=== PATIENT | female | born 1965 | race Caucasian/White ===

== ENCOUNTER 2018-01-19 16:24 | Emergency (ER) | payer OTHER, MEDICAID, SELFPAY ==
[2018-01-19 16:25] VITALS: BP 135/98; PULSE 69; RESP 18; TEMP 36.9; O2SAT 100; BMI 35.1
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
[2018-01-19 19:14] VITALS: BP 130/60; PULSE 89; RESP 18; TEMP 37.1; O2SAT 95
== END 2018-01-19 19:16 | disposition home or self-care (01) ==
PROVIDERS: Emergency Provider Emergency Medicine; PCP Nurse Practitioner Family
DX: S39.012A Strain of muscle, fascia and tendon of lower back, initial encounter (principal); V43.62XA Car passenger injured in collision with other type car in traffic accident, initial encounter; Y92.414 Local residential or business street as the place of occurrence of the external cause; E11.9 Type 2 diabetes mellitus without complications; F17.210 Nicotine dependence, cigarettes, uncomplicated; Z88.6 Allergy status to analgesic agent
CPT/HCPCS: 71045; 72131; 72170; 96372; 99282; J2405

== ENCOUNTER → 2018-04-04 16:18 | Outpatient (CLI) | payer MEDICAID, SELFPAY ==
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
== END ==
PROVIDERS: Family Provider Internal Medicine Adolescent Medicine; PCP Nurse Practitioner Family; Visit Provider Nurse Practitioner Family
DX: M54.42 Lumbago with sciatica, left side (principal)
CPT/HCPCS: 72148; 76376

== ENCOUNTER → 2018-09-02 15:31 | Outpatient (CLI) | payer MEDICAID, SELFPAY ==
--- NOTE | 2018-09-02 15:36 | XR_ITS ---
XR chest 2V HISTORY: ITS.REASON: COUGH ORDERING PHYSICIAN: Kofi Ortega MD PATIENT AGE: 52 years COMPARISON: 01/19/2018 FINDINGS: The heart size is unremarkable. There is increased density in the right lung base medially have a fairly sharp margin. While this could be due to prominent pericardial fat pad, right lower lobe collapse could have a similar appearance. Consider chest CT in this patient which is a current smoker. There is a calcified granuloma in the left lower lobe. The remaining lungs are clear. Bone plate is present in the lower cervical spine. No acute bony anomalies. Calcified nodes are present in the right hilum. IMPRESSION: 1. Right lower lobe collapse versus prominent pericardial fat pad/pericardial mass. Suggest chest CT for further evaluation. 2. Old granulomatous disease
== END ==
PROVIDERS: PCP Internal Medicine Adolescent Medicine; Visit Provider Internal Medicine Adolescent Medicine
DX: J41.0 Simple chronic bronchitis (principal); Z20.1 Contact with and (suspected) exposure to tuberculosis
CPT/HCPCS: 71046

== ENCOUNTER → 2018-09-09 13:10 | Outpatient (CLI) | payer MEDICAID, SELFPAY | PROVIDERS: PCP Internal Medicine Adolescent Medicine; Visit Provider Nurse Practitioner Family | DX: R06.09 Other forms of dyspnea (principal) | CPT/HCPCS: 93005 ==

== ENCOUNTER → 2018-09-14 10:44 | Outpatient (CLI) | payer MEDICAID, SELFPAY ==
[2018-09-14 11:35] VITALS: PULSE 71; PULSE 78
== END ==
PROVIDERS: PCP Internal Medicine Adolescent Medicine; Visit Provider Internal Medicine Adolescent Medicine
DX: R91.8 Other nonspecific abnormal finding of lung field (principal); R06.09 Other forms of dyspnea
CPT/HCPCS: 94060; 94640; 94726; 94729

== ENCOUNTER → 2018-09-16 11:31 | Outpatient (CLI) | payer MEDICAID, SELFPAY ==
--- NOTE | 2018-09-16 11:51 | NM_ITS ---
History and Indications: Diabetes, hyperlipidemia, chronic tobacco use, family history and shortness of breath Procedure: Patient received a 0.4 mg of intravenous Lexiscan, resting heart rate was 66 beats per resting blood pressure 119/76, with scan maximum heart rate achieved was 93 bpm which is less than 85% of the maximum predicted heart rate and a blood pressure was 125/76. With Lexiscan no symptoms recorded Electrocardiogram: Resting echocardiogram showed sinus rhythm, with Lexiscan there is less than 1.[address] segment depression noted from the baseline EKG. The EKG portion of the Lexiscan Myoview is nondiagnostic. Cardiac stress and resting SPECT images: Cardiac stress and rest SPECT images were obtained using technetium 99 Myoview 31.5 mCi stress and 10.1 mCi rest, gated SPECT further analysis of segmental wall motion and calculation of the ejection fraction also done. Cardiac stress and rest show uniform myocardial activity, without segmental perfusion abnormality, computer derived ejection fraction is over 65% with no regional wall motion abnormality, right ventricle is normal size and contractility. Conclusion: 1. The EKG portion of the Lexiscan Myoview is nondiagnostic. 2. No scintigraphic evidence of reversible ischemia seen, computer derived ejection fraction is over 65% with no regional wall motion abnormality, right ventricle is normal size and contractility. 3. Normal Lexiscan Myoview study.
--- NOTE | 2018-09-16 14:15 | HMH.ITSHM ---
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 []loratadine vit b vit d gabapentin citolopram pravastatin tizanodine
== END ==
PROVIDERS: PCP Internal Medicine Adolescent Medicine; Visit Provider Internal Medicine Adolescent Medicine
DX: R06.09 Other forms of dyspnea (principal)
CPT/HCPCS: 78452; 93017; A9502; J2785

== ENCOUNTER → 2018-09-26 08:22 | Outpatient (CLI) | payer MEDICAID, SELFPAY ==
[2018-09-26 08:40] LABS: Blood Urea Nitrogen 11 mg/dL (7-18); Estimated Glomerular Filt Rate 65 ml/min (>60); GFR (African American) 79 ML/MIN (>60)
--- NOTE | 2018-09-26 08:47 | CT_ITS ---
CT chest w con HISTORY: ITS.REASON: PULMONARY MASS ORDERING PHYSICIAN: Kofi Ortega MD PATIENT AGE: 52 years COMPARISON: 09/02/2018, 05/31/2008 TECHNIQUE: Axial images obtained following the administration of 75 mL of Isovue 370 . Sagittal, and coronal reformatted images are also generated and reviewed. All CT scans at the facility use one or more dose reduction, viz: automated exposure control, ma/kV adjustment per patient size (including targeted exams where dose is matched to indication, i.e. head), or iterative reconstruction technique. FINDINGS: No mediastinal or hilar mass or adenopathy. There are a few small mediastinal lymph nodes not significant change. There are coronary artery calcifications. No evidence of aortic aneurysm or dissection. No central pulmonary embolus. No central obstructing lesions. The right hemidiaphragm is elevated and there is a prominent right pericardial fat pad. These findings likely correspond to the radiographic abnormality noted on 09-02-18 simulating right lower lobe collapse.. Dependent changes are present in the right lower lobe. No suspicious nodules are apparent. Mild paraseptal emphysematous changes are present. There are some atelectatic or fibrotic changes within the lingula anteriorly. Calcified granuloma is present in the lingula and in the right lower lobe. Upper abdominal images show a 10 mm isodense in the right hepatic lobe anteriorly nonspecific and may represent a hepatic cyst previously measuring 9 mm. IMPRESSION: 1. No acute cardiac or pulmonary findings. 2. Elevated right hemidiaphragm with prominent pericardial fat pad likely simulating right lower lobe collapse as seen on the recent radiograph. 3. Old granulomatous disease 4. Coronary artery calcification
== END ==
PROVIDERS: Visit Provider Internal Medicine Adolescent Medicine
DX: R91.8 Other nonspecific abnormal finding of lung field (principal)
CPT/HCPCS: 36415; 71260; 82565; 84520; Q9967

== ENCOUNTER → 2019-04-14 14:56 | Outpatient (CLI) | payer MEDICAID, SELFPAY ==
--- NOTE | 2019-04-14 15:15 | XR_ITS ---
XR shoulder RT min 2V HISTORY: ITS.REASON: RT SHOULDER PAIN ORDERING PHYSICIAN: Kofi Ortega MD PATIENT AGE: 53 years Comparison: None FINDINGS: No fracture or dislocation. No lytic or blastic change. There is normal mineralization. The joint spaces are well-preserved. No significant degenerative/arthritic changes. No erosive changes evident. IMPRESSION: Negative, no acute finding
--- NOTE | 2019-04-14 15:15 | XR_ITS ---
XR humerus RT CLINICAL INDICATION: ITS.REASON: RT SHOULDER PAIN ORDERING PHYSICIAN: Kofi Ortgea MD PATIENT AGE: 53 years Comparison: None FINDINGS: No bony or joint abnormality IMPRESSION: Negative right humerus
[2019-04-14 15:41] LABS: Basophils # 0.1 K/mm3 (0-0.2); Basophils % 0.6 % (0.1-2.0); Eosinophils # 0.2 K/mm3 (0.0-0.4); Eosinophils % 1.7 % (0.1-12.0); Hematocrit 43.6 % (37.0-47.0); Hemoglobin 13.5 g/dL (12.2-16.2); Lymphocytes # 3.9 K/mm3 (0.7-4.5); Mean Corpuscular Hemoglobin 28.3 pg (27.0-31.2); Mean Corpuscular Volume 91.1 fl (81-99); Mean Platelet Volume 7.6 fl (7.4-10.4); Monocytes # 0.7 K/mm3 (0.1-1.0); Monocytes % 5.3 % (1.7-9.3); Neutrophils # 7.4 K/mm3 (1.8-7.8); Neutrophils % 60.4 % (37.0-80.0); Platelet Count 322 K/mm3 (142-424); Red Blood Count 4.79 M/mm3 (4.20-5.40); Red Cell Distribution Width 13.4 % (11.5-17.5); White Blood Count 12.2 K/mm3 (4.8-10.8)
[2019-04-14 16:39] LABS: Hemoglobin A1C 5.4 % (0.0-7.0)
[2019-04-14 17:06] LABS: Alanine Aminotransferase 35 U/L (12-78); Albumin Level 3.6 gm/dL (3.4-5.0); Alkaline Phosphatase 97 U/L (46-116); Anion Gap 12.3 mEq/L (5-15); Aspartate Amino Transferase 27 U/L (15-37); Bilirubin,Total 0.2 mg/dL (0.2-1.0); Blood Urea Nitrogen 10 mg/dL (7-18); Calcium 8.8 mg/dL (8.5-10.1); Carbon Dioxide 29 mmol/L (21.0-32.0); Chloride 102 mmol/L (98-107); Chol/HDL Ratio 3.9 (1-3.5); Cholesterol 192 mg/dL (140-200); Creatinine,Serum 0.86 mg/dL (0.55-1.02); Estimated Glomerular Filt Rate 69 ml/min (>60); GFR (African American) 83 ML/MIN (>60); Globulin 3.6 gm/dl (1.3-3.2); Glucose 73 mg/dL (74-106); HDL Cholesterol 49 mg/dL (29-89); LDL Cholesterol 117 mg/dL (0-130); Potassium 4.3 mmoL/L (3.5-5.1); Sodium 139 mmol/L (136-145); Thyroid Stimulating Hormone 1.68 uIU/ml (0.358-3.740); Total Protein,Serum 7.2 gm/dL (6.4-8.2); Triglycerides 129 mg/dL (30-200); VLDL Cholesterol 26 mg/dL (0-40)
[2019-04-17 03:14] LABS: Vitamin B12 703 pg/mL (232-1245)
== END ==
PROVIDERS: Visit Provider Internal Medicine Adolescent Medicine
DX: E11.9 Type 2 diabetes mellitus without complications (principal); R27.0 Ataxia, unspecified; G89.11 Acute pain due to trauma; M25.511 Pain in right shoulder
CPT/HCPCS: 36415; 73030; 73060; 80053; 80061; 82607; 83036; 84443; 85025

== ENCOUNTER → 2019-05-18 08:25 | Outpatient (CLI) | payer MEDICAID, SELFPAY ==
--- NOTE | 2019-05-18 08:30 | CT_ITS ---
CT lung screening EXAM: CT LUNG LOW DOSE WO CONTRAST HISTORY: 43 pack-year smoking history, asymptomatic for lung cancer ITS.REASON: H/O NICOTINE DEPENDENCE ORDERING PHYSICIAN: Kofi Ortega MD PATIENT AGE: 53 years COMPARISON: 09/26/2018 TECHNIQUE: The exam was performed on a GE Light Speed [address] scanner using 2.90 mGy CTDI. A low dose helical CT CHEST was performed on a multi-detector scanner. All CT scans at the facility use one or more dose reduction, viz: automated exposure control, ma/kV adjustment per patient size (including targeted exams where dose is matched to indication, i.e. head), or iterative reconstruction technique. The LDCT was performed in a facility that meets the criteria for the screening program. Data regarding this exam was submitted to ACR which is an approved registry. The order for this exam indicates that it came as a result of a lung cancer screening counseling shard decision-making visit that included all the elements required of such a visit including smoking cessation. The radiologist interpreting this exam meets the CMS criteria for the LDCT lung cancer screening program. The exam is reported using the Lung-RADS classification scale and reported to the ACR registry. NOTE: This study was performed for the specific purposes of lung cancer screening and is not an alternative to diagnostic chest CT. RADIATION DOSE: CTDI vol(CT dose Index-volume) = 2.90mG DLP (Dose Length Product) = 102.38 mGcm FINDINGS: COPD with paraseptal emphysematous changes and scattered areas of scarring. Old granulomatous disease Coronary artery calcifications IMPRESSION: 1. Lung RADS Category: 2, benign 2. Other findings: COPD with paraseptal emphysema and coronary artery calcification RECOMMENDATIONS: 12 month LDCT follow-up
--- NOTE | 2019-05-18 08:30 | MM_ITS ---
MM Dig screening mamm BI w/CAD CAD Screening COMPARISON: Digital mammograms with CAD 01/06/2017 and analog mammograms 07/10/2013 INDICATION: There is a history of breast cancer in patient's paternal great aunt and paternal aunt both after menopause TECHNIQUE: Standard CC and MLO images were obtained. R2 CAD reviewed. FINDINGS: The rest are composed primarily of fat with minimal scattered fibroglandular densities throughout each breast. There are couple benign-appearing microcalcifications left breast. There are stable nodes in both axilla. There is no suspicious lesion and there are no suspicious microcalcifications. IMPRESSION: Fibrofatty parenchyma with no suspicious lesion seen BI-RADS Category: 2 Benign Finding(s) RECOMMENDED FOLLOW-UP: 1YR - 1 YEAR FOLLOW-UP (A letter has been sent to the patient regarding results of the study.)
== END ==
PROVIDERS: PCP Internal Medicine Adolescent Medicine; Visit Provider Internal Medicine Adolescent Medicine
DX: Z12.31 Encounter for screening mammogram for malignant neoplasm of breast (principal); Z78.0 Asymptomatic menopausal state; Z12.2 Encounter for screening for malignant neoplasm of respiratory organs; Z87.891 Personal history of nicotine dependence; Z13.820 Encounter for screening for osteoporosis
CPT/HCPCS: 77067

== ENCOUNTER → 2019-06-07 12:56 | Outpatient (CLI) | payer MEDICAID, SELFPAY ==
--- NOTE | 2019-06-07 12:58 | XR_ITS ---
XR DEXA axial skeleton HISTORY: ITS.REASON: POST MENOPAUSAL SCREENING ORDERING PHYSICIAN: Kofi Ortega MD PATIENT AGE: 53 years COMPARISON: None FINDINGS: The BMD measured at the Left femoral neck is 0.855 g/cm squared with a T score of -1.3. This is considered Osteopenic according to the World Health Organization criteria. Fracture risk is Moderate. Treatment is advised. IMPRESSION: Osteopenia. Moderate fracture risk. Suggest follow-up exam June 2021
== END ==
PROVIDERS: PCP Internal Medicine Adolescent Medicine; Visit Provider Internal Medicine Adolescent Medicine
DX: M85.89 Other specified disorders of bone density and structure, multiple sites (principal)
CPT/HCPCS: 77080

== ENCOUNTER 2019-06-07 14:00 | Outpatient (RCR) | payer MEDICAID, SELFPAY ==
--- NOTE | 2019-04-25 13:43 | HMH.OTOPEV ---
OT Inpatient Evaluation Rehab OT Outpatient Eval Start: 04/25/19 13:31 Freq: Status: Active Protocol: Document 04/25/19 13:31 RMARSHALL (Rec: 04/25/19 13:[id number] Electronically Signed By Abdoulaye Danielle OT 04/25/19 13:31 Outpatient Therapy Subjective History Subjective History Pt is a 53 year old female who reports to therapy for initial evaluation to right shoulder. Pt reports on she slipped and fell. Pt tried to catch herself with right arm and began having pain immediately. Pt does demonstrate with decreased AROM and strength at right shoulder. Pt also explains she has constant pain in the shoulder that refers down into her elbow. Pt will continue to be seen twice a week in order to address all deficits. Chief Complaint Pain,Stiff,Weakness Symptom Type Ache,Throb,Sharp Symptoms Relieved By Rest/Positioning Symptoms Aggravated By Physical Activity,Twisting, Lifting Prior Functional Limitations None Current Functional Limitations Reaching,Lifting,Housework, Dressing,Desk Work/Reading, Sleeping,Recreation Activity Symptom Description Constant but Variable Level of pain today (0-10) 3 Pain scale - at its best (0-10) 1 Pain scale - at its worst (0-10) 5 Shoulder/Elbow Eval Shoulder Objective Measurements Shoulder ROM Right Shoulder ROM Limitations Pain Shoulder Abduction Active Range of 90 degrees Motion (degrees) Shoulder Flexion Active Range of Motion 105 degrees (degrees) Query Text: Shoulder External Rotation Active Range 50 degrees of Motion (degrees) Shoulder Internal Rotation Active Range 70 degrees of Motion (degrees) pain with active ROM shoulder exam right standard pain with passive ROM shoulder exam right standard decreased ROM shoulder exam standard right full ROM shoulder exam standard left Shoulder MMT Shoulder Abduction Strength Grade 3 Fair Shoulder Extension Strength Grade 3+ Fair+ Shoulder Flexion Strength Grade 3+ Fair+ Shoulder External Rotation Strength 3+ Fair+ Grade Shoulder Internal Rotation Strength 4- Good- Grade
== END 2019-06-07 14:05 | disposition home or self-care (01) ==
LOC: OT 14:00
PROVIDERS: Visit Provider Internal Medicine Adolescent Medicine
DX: M25.511 Pain in right shoulder (principal); M79.601 Pain in right arm
CPT/HCPCS: 97014; 97110; 97164; 97166; G0283

== ENCOUNTER 2019-07-05 13:30 | Outpatient (RCR) | payer MEDICAID, SELFPAY ==
--- NOTE | 2019-06-20 15:03 | HMH.PTOPEV ---
PT Outpatient Evaluation Rehab PT Outpatient Evaluation Start: 06/20/19 13:02 Freq: Status: Active Protocol: Document 06/20/19 14:48 PHORNAYELY (Rec: 06/20/19 15:02 PHORNE [id number]) Electronically Signed By Rosas Nieto, PT 06/20/19 14:48 Outpatient Therapy Subjective History Subjective History Pt is 53 yowf who presents with c/o pain in the low back and right LE x ~ 20 yrs. 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 Pt reports she had NCV test which showed worse problems in the left LE. She also had MRI performed 1 yr ago which showed L5/S1 spondylolisthesis. She states , I fall around a lot, I've probably fallen 5 or 6 times in the last year. She reports PMH of COPD, emphysema, DM-II , DDD, OA, osteopenia, and cervical discectomy with possible fusion. Chief Complaint Pain,Stiff,Paresthesia, Weakness Symptom Type Ache,Throb,Sharp,Dull,Stabbing ,Numbness,Tingling Symptoms Relieved By Rest/Positioning Symptoms Aggravated By Bending/Stooping,Physical Activity,Walking,Lifting Prior Functional Limitations Lifting,Sleeping,Walking, Bending/Stooping Current Functional Limitations Lifting,Sleeping,Walking, Bending/Stooping Symptom Description Constant but Variable Level of pain today (0-10) 3 Pain scale - at its worst (0-10) 10 Lumbopelvic Eval Gait Observation General Gait Pattern Observation Antalgic Gait Palapation tenderness bilateral Lumbar/Sacral Palpation Findings Tenderness Lumbar/Sacral Palpation Overall Comment B SI jt Accessory Movement L-spine Vertebrae Accessory Movements Central P/A [place] that Elicit Symptoms L2 bilateral L3 bilateral L4 bilateral L5 bilateral S1 bilateral Range of Motion Lumbar Spine Active Flexion Range of 0-55 Motion (degrees) Lumbar Spine Active Extension Range of 0-20 Motion (degrees) Left Lumbar Spine Lateral Flexion Active 0-20 Range of Motion (degrees) Right Lumbar Spine Lateral
== END 2019-07-05 13:35 | disposition home or self-care (01) ==
LOC: PT 13:30
PROVIDERS: Visit Provider Internal Medicine Adolescent Medicine
DX: M54.42 Lumbago with sciatica, left side (principal); M54.41 Lumbago with sciatica, right side
CPT/HCPCS: 97010; 97012; 97014; 97035; 97110; 97140; 97163; G0283

== ENCOUNTER → 2020-01-12 10:06 | Outpatient (CLI) | payer OTHER, SELFPAY ==
--- NOTE | 2020-01-12 10:10 | XR_ITS ---
PROCEDURE: XR WRIST RT W SCAPHOID CLINICAL INDICATION: wrist pain COMPARISON: WRR3 WRIST-3 VIEWS-RT from 01/31/2013 FINDINGS: No fracture, dislocation, lytic change, or blastic change evident. No significant degenerative change IMPRESSION: Negative right wrist Dictated by: Remington Bethea MD 01/12/2020 12:44 Electronically signed by Remington Bethea MD in [place] 01/12/2020 12:44
== END ==
PROVIDERS: PCP Internal Medicine Adolescent Medicine; Visit Provider Orthopaedic Surgery
DX: M25.531 Pain in right wrist (principal)
CPT/HCPCS: 73110

== ENCOUNTER 2020-01-19 14:00 | Outpatient (RCR) | payer OTHER, SELFPAY ==
--- NOTE | 2019-12-13 11:58 | HMH.OTOPEV ---
OT Inpatient Evaluation Rehab OT Outpatient Eval Start: 12/13/19 11:47 Freq: Status: Active Protocol: Document 12/13/19 11:47 FREDDY (Rec: 12[facility]13/19 11[facility]57 [id number] Electronically Signed By Abdoulaye Danielle OT 12/13/19 11:47 Outpatient Therapy Subjective History Subjective History Pt is a 54 year old female with past medical history of arthritis, diabetes, fibro, and COPD. Pt reports her right elbow began hurting her ~3 months ago. Pt does not recall a specific injury causing the pain to begin. Pt demonstrates pain at the right lateral aspect of the elbow. Pt is right hand dominant. Pt does not demosntrate with decreased AROM at right elbow, but she does show decreased strength at right elbow. Pt will continue to be seen twice a week in order to address all deficits. Chief Complaint Pain,Weakness Symptom Type Ache,Throb,Sharp,Dull,Numbness ,Shooting Symptoms Relieved By Rest/Positioning Symptoms Aggravated By Physical Activity,Twisting, Lifting Prior Functional Limitations None Current Functional Limitations Reaching,Lifting,Housework, Dressing,Desk Work/Reading, Driving,Sleeping,Recreation Activity Symptom Description Intermittent,Activity Dependent Level of pain today (0-10) 3 Pain scale - at its best (0-10) 1 Pain scale - at its worst (0-10) 9 Shoulder/Elbow Eval Shoulder Objective Measurements Elbow Objective Measurements Elbow MMT Right Elbow Flexion Strength Grade 3 Fair Elbow Extension Strength Grade 3 Fair OT Outpatient Assessment Impairments Problems/Impairments Palpation Tenderness,Impaired Range of Motion,Impaired Strength,Impaired Endurance, Impaired Lifting,Impaired Dressing,Impaired Shower/ Bathing,Impaired Household Care,Impaired Recreational Activities,Impaired Work Activities,Subjective C/O Pain
== END 2020-01-19 14:05 | disposition home or self-care (01) ==
LOC: OT 14:00
PROVIDERS: Visit Provider Orthopaedic Surgery
DX: M77.11 Lateral epicondylitis, right elbow (principal)
CPT/HCPCS: 97014; 97035; 97110; 97140; 97165; G0283

== ENCOUNTER → 2020-01-29 08:13 | Outpatient (POV) | payer OTHER, SELFPAY | PROVIDERS: PCP Internal Medicine Adolescent Medicine; Visit Provider Specialist | DX: M79.602 Pain in left arm (principal); M79.601 Pain in right arm; R20.0 Anesthesia of skin; R20.2 Paresthesia of skin | CPT/HCPCS: 95886; 95910 ==

== ENCOUNTER → 2020-03-22 08:04 | Outpatient (CLI) | payer OTHER, SELFPAY ==
--- NOTE | 2020-03-22 08:08 | CT_ITS ---
PROCEDURE: CT LUNG SCREENING CLINICAL INDICATION: H/O NICOTINE DEPENDENCE Forty-three pack-year smoking history, asymptomatic for lung cancer, emphysema COMPARISON: LUNGSCREEN CT lung screening from 05/18/2019 TECHNIQUE: The exam was performed on a GE Light Speed [address] scanner using 2.90 mGy CTDI. A low dose helical CT CHEST was performed on a multi-detector scanner. All CT scans at the facility use one or more dose reduction, viz: automated exposure control, ma/kV adjustment per patient size (including targeted exams where dose is matched to indication, i.e. head), or iterative reconstruction technique. The LDCT was performed in a facility that meets the criteria for the screening program. Data regarding this exam was submitted to [employer] which is an approved registry. The order for this exam indicates that it came as a result of a lung cancer screening counseling shard decision-making visit that included all the elements required of such a visit including smoking cessation. The radiologist interpreting this exam meets the CMS criteria for the LDCT lung cancer screening program. The exam is reported using the Lung-RADS classification scale and reported to the ACR registry. NOTE: This study was performed for the specific purposes of lung cancer screening and is not an alternative to diagnostic chest CT. RADIATION DOSE: CTDI vol(CT dose Index-volume) = 2.90mG DLP (Dose Length Product) = 99.77 mGcm Lung Rads Category: FINDINGS: COPD with centrilobular and paraseptal emphysema. There is mild coarsening of the interstitial markings. Calcified granuloma is present in the lingula. No suspicious pulmonary nodules apparent. There are minimal atelectatic changes or scarring in the lingula and right lung base OTHER FINDINGS: Small nodes are present in the mediastinum. Coronary artery calcifications are noted. IMPRESSION: Lung rads category 1- Recommend annual LD CT Incidental note made of coronary artery calcifications, COPD, and centrilobular and paraseptal emphysema Dictated by: Remington Bethea MD 04/07/2020 07:17 Electronically signed by Remington Bethea MD in [place] 04/07/2020 07:17
== END ==
PROVIDERS: PCP Internal Medicine Adolescent Medicine; Visit Provider Internal Medicine Adolescent Medicine
DX: Z87.891 Personal history of nicotine dependence (principal); Z12.2 Encounter for screening for malignant neoplasm of respiratory organs

== ENCOUNTER → 2020-06-13 11:12 | Outpatient (CLI) | payer OTHER, SELFPAY ==
[2020-06-13 11:34] LABS: Basophils # 0.1 K/mm3 (0-0.2); Basophils % 0.5 % (0.1-2.0); Eosinophils # 0.2 K/mm3 (0.0-0.4); Eosinophils % 1.8 % (0.1-12.0); Hematocrit 40.2 % (37.0-47.0); Lymphocytes # 3.7 K/mm3 (0.7-4.5); Lymphocytes % 30.3 % (10-50); Mean Corpuscular HGB Conc 32.4 g/dL (31.8-35.4); Mean Corpuscular Hemoglobin 31.5 pg (27.0-31.2); Mean Corpuscular Volume 97.2 fl (81-99); Mean Platelet Volume 7.5 fl (7.4-10.4); Monocytes # 0.6 K/mm3 (0.1-1.0); Monocytes % 4.9 % (1.7-9.3); Neutrophils # 7.6 K/mm3 (1.8-7.8); Neutrophils % 62.5 % (37.0-80.0); Platelet Count 277 K/mm3 (142-424); Red Blood Count 4.14 M/mm3 (4.20-5.40); Red Cell Distribution Width 14.1 % (11.5-17.5); White Blood Count 12.1 K/mm3 (4.8-10.8)
[2020-06-13 12:03] LABS: Chloride 106 mmol/L (98-107); Potassium 4.5 mmoL/L (3.5-5.1); Sodium 140 mmol/L (136-145)
[2020-06-13 12:06] LABS: Alanine Aminotransferase 16 U/L (12-78); Albumin Level 3.9 g/dl (3.5-5.0); Albumin/Globulin Ratio 1.4 (1.1-1.8); Alkaline Phosphatase 71 U/L (38-126); Anion Gap 10.5 mEq/L (5-15); Aspartate Amino Transferase 20 U/L (14-36); Bilirubin,Total 0.3 mg/dl (0.2-1.3); Blood Urea Nitrogen 11 mg/dl (7-17); Carbon Dioxide 28 mmol/L (22.0-30.0); Cholesterol 179 mg/dl (140-200); Estimated Glomerular Filt Rate 87 ml/min (>60); GFR (African American) 105 ML/MIN (>60); Globulin 2.8 g/dL (1.3-3.2); Total Protein,Serum 6.7 g/dl (6.3-8.2); Triglycerides 85 mg/dl (30-150); VLDL Cholesterol 17 mg/dL (0-40)
[2020-06-13 12:07] LABS: Calcium 9.5 mg/dl (8.4-10.2); Chol/HDL Ratio 3.1 (1-3.5); Glucose 85 mg/dl (74-100); HDL Cholesterol 57 mg/dl (40-60)
[2020-06-13 12:17] LABS: Direct LDL Cholesterol 107.74 mg/dL (100-129)
== END ==
PROVIDERS: Visit Provider Internal Medicine Adolescent Medicine
DX: J44.9 Chronic obstructive pulmonary disease, unspecified (principal)
CPT/HCPCS: 36415; 80053; 80061; 85025

== ENCOUNTER → 2020-07-04 10:51 | Outpatient (CLI) | payer OTHER, SELFPAY | PROVIDERS: PCP Internal Medicine Adolescent Medicine; Visit Provider Internal Medicine Adolescent Medicine | DX: Z87.891 Personal history of nicotine dependence (principal) ==

== ENCOUNTER 2020-07-23 15:00 | Outpatient (RCR) | payer OTHER, SELFPAY ==
--- NOTE | 2020-06-24 15:40 | HMH.PTOPEV ---
PT Outpatient Evaluation Rehab PT Outpatient Evaluation Start: 06/24/20 15:29 Freq: Status: Active Protocol: Document 06/24/20 15:30 MARCIN (Rec: 06/24/20 15:39 [email or web address] [id number]) Electronically Signed By Heraclio Salas PT 06/24/20 15:30 Outpatient Therapy Subjective History Subjective History This is the initial Physical Therapy evaluation for Luh Workman. Pt is a 54 y/o femal referred to PT for c/o dizziness and falls. Pt reports she has had c/o BLE paresthesia and numbness since prior to cervical surgery in 2014. Pt reports some of her S&S improved after the surgery . Pt reports this lasted for a short time and now she hac c /o dizziness and paresthesia in BLE w/ L>R. Pt reports she has no feeling in either foot . Pt reports she gets dizzy w / cervical extension. Chief Complaint Paresthesia,Weakness,Other Symptom Type Other Symptoms Aggravated By Walking Current Functional Limitations Housework,Driving,Sitting, Recreation Activity,Walking, Balance Symptom Description Constant but Variable Balance Eval Hx of Falls Hx Falls Yes Number in last 6 months 5 Gait/Posture Asssessment General Gait Observation Wide Based Gait Assistive Devices Straight Cane Level of Transfer Assist Independent Body Alignment Posture Rigid Nystagmus Nystagmus Presence None Oculomotor Gaze Oculomotor Gaze Nml: Vergence Smooth Pursuit Saccades VOR Cancellation Cover/Uncover Cross Cover Rhomberg Feet Together/Eyes open/Stable Surface pass Feet Together/Eyes Closed/Stable Surface fail Feet Together/Eyes open/Unstable Surface pass Feet Together/Eyes Closed/Unstable fail Surface Outpatient Therapy Assessment Impairments Problems/Impairmments Impaired Walking,Impaired Incline Stepping,Impaired Stepping on Uneven Surface, Impaired Recreational Activities,Impaired Self Care/ Self M
== END 2020-07-23 15:49 | disposition home or self-care (01) ==
LOC: PT 15:00
PROVIDERS: PCP Internal Medicine Adolescent Medicine; Visit Provider Internal Medicine Adolescent Medicine
DX: H81.13 Benign paroxysmal vertigo, bilateral (principal)
CPT/HCPCS: 97163

== ENCOUNTER → 2020-08-12 14:09 | Outpatient (CLI) | payer OTHER, SELFPAY ==
--- NOTE | 2020-08-12 14:28 | MR_ITS ---
PROCEDURE: MR CERVICAL SPINE WO CON CLINICAL INDICATION: CERIVCAL AND THORACIC PAIN HX NECK SURGERY 2015. BILATERAL HAND AND ARM NUMBNESS XYRS. FALLING FREQUENTLY. NO PRIOR. COMPARISON: No exams were available for comparison TECHNIQUE: Standard multiplanar multiecho sequences are performed without contrast. 3-D MIP and myelographic images are also rendered and reviewed FINDINGS: The craniocervical junction has an unremarkable appearance. There is a partial empty sella turcica. C2-C3: Unremarkable. C3-C4: Left-sided facet and uncovertebral hypertrophy with left-sided foraminal narrowing. Mild bulging disc with minimal central disc protrusion versus prominent posterior longitudinal ligament C4-C5: Facet and uncovertebral hypertrophy with bilateral foraminal narrowing and canal stenosis at 10 mm. C5-C6: Prior anterior cervical disc fusion. Artifact obscures fine detail at that level. There does appear to be some posterior ridging of the interspace with canal stenosis with impingement upon the cord. With the canal measuring 6 mm. There is abnormal signal intensity of the cord at this level there is increased signal intensity involving the central aspect of the cord which measures cm in length at the C5-C6 area and may be due to underlying gliotic changes or small syrinx. C6-C7: Artifact present from the anterior bone plate. Bulging disc is noted with canal stenosis of 8 mm. C7-T1: Unremarkable. IMPRESSION: 1. C3-C4: Left-sided facet and uncovertebral hypertrophy with left-sided foraminal narrowing. Mild bulging disc with minimal central disc protrusion versus prominent posterior longitudinal ligament 2. C4-C5: Facet and uncovertebral hypertrophy with bilateral foraminal narrowing and canal stenosis at 10 mm. 3. C5-C6: Prior anterior cervical disc fusion. Artifact obscures fine detail at that level. There does appear to be some posterior ridging of the interspace with canal stenosis with impingement upon the cord. With the canal measuring 6 mm. There is abnormal signal intensity of the cord at this level there is increased signal intensity involving the central aspect of the cord which measures cm in length at the C5-C6 area and may be due to underlying gliotic changes or small syrinx. 4. C6-C7: Artifact present from the anterior bone plate. Bulging disc is noted with canal stenosis of 8 mm. Dictated by: Remington Bethea MD 08/13/2020 15:48 Remington Bethea MD in [place] 08/13/2020 15:48
--- NOTE | 2020-08-12 16:52 | MR_ITS ---
PROCEDURE: MR LUMBAR SPINE WO CON CLINICAL INDICATION: BACK PAIN BACK PAIN. BILATERAL LEG PAIN, NUMBNESS, AND TINGLING. UNABLE TO WALK OR STAND FOR LONG PERIODS. NO PRIOR. COMPARISON: MR MR CERVICAL SPINE WO CON from 08/12/2020 TECHNIQUE: Standard multiplanar multiecho sequences are performed without contrast. 3-D MIP and myelographic images are also rendered and reviewed FINDINGS: The spinal cord ends at the L1 level. T11-T12: Mild degenerative disc disease with type 2 endplate changes. Minimal bulging disc. T12-L1: Unremarkable. L2-L3: 2 mm retrolisthesis of L2 with mild bulging disc with mild facet and ligamentum hypertrophy. L3-L4: Minimal bulging disc with mild facet and ligamentum hypertrophy with moderate bilateral foraminal narrowing. L4-5: 2 mm anterolisthesis of L4 with bulging disc along with facet and ligamentum hypertrophy with moderate foraminal narrowing. L5-S1: 6 mm anterolisthesis of L5 with mild degenerative disc disease and bulging disc at that level along with facet and ligamentum hypertrophy with severe bilateral foraminal narrowing. There is incidental note made of a small T2 hyperintensity the base of the spinous process of L4 inferiorly measuring 3 mm. IMPRESSION: Multilevel lumbar spondylosis as described above with lateral recess and foraminal narrowing. Please see above for detailed description at each level Dictated by: Remington Bethea MD 08/13/2020 15:55 Remington Bethea MD in [place] 08/13/2020 15:55
== END ==
PROVIDERS: PCP Internal Medicine Adolescent Medicine; Visit Provider Orthopaedic Surgery
DX: M54.2 Cervicalgia (principal); M54.6 Pain in thoracic spine
CPT/HCPCS: 72141; 72148; 76376

== ENCOUNTER 2020-08-15 10:00 | Outpatient (RCR) | payer OTHER, SELFPAY ==
--- NOTE | 2020-07-30 11:15 | HMH.PTOPEV ---
PT Outpatient Evaluation Rehab PT Outpatient Evaluation Start: 07/30/20 10:00 Freq: Status: Active Protocol: Document 07/30/20 10:31 MARCIN (Rec: 07/30/20 11:14 MARCIN [id number]) Electronically Signed By Heraclio Salas, PT 07/30/20 10:31 Outpatient Therapy Subjective History Subjective History This is the initial PT evaluation for Luh Workman, a 54 y/o female reporting to physical therapy for balance and dizziness. Pt. reports that this has been going on for 25 years. Pt. reports loss of sensation in her feet. Pt. also reported that she had a spinal surgery in 2014 and that they took a disc out . Note done by SPT Bandar Grimes Chief Complaint Gives out/Unstable,Weakness Symptom Type Numbness,Tingling Symptoms Relieved By Nothing Symptoms Aggravated By Physical Activity,Walking Prior Functional Limitations Housework,Walking,Balance Current Functional Limitations Standing,Recreation Activity, Walking,Balance Symptom Description Activity Dependent Balance Eval Subjective Hx of Complaint Comment Pt. reported that she has had 2 falls in the last 2 weeks Chief Complaint Did you feel dizzy, unsteady or faint? Yes Current Functional Limitations Comment Pt. reports troubles with household activites, such as mopping, sweeping, Hx of Falls Hx Falls Yes: Pt. didn't give a number but reported 2 falls in the last 2 weeks Gait/Posture Asssessment General Gait Observation Wide Based Gait Assistive Devices Straight Cane Level of Transfer Assist Independent Ankle/Foot Observation in Gait Swing Decreased Foot Clearance Ankle/Foot Observation in Gait Stance Everted Body Alignment Posture Leaning Rhomberg Feet Together/Eyes open/Stable Surface pass Feet Together/Eyes Closed/Stable Surface fail Feet Together/Eyes open/Unstable Surface fail Feet Together/Eyes Closed/Unstable fail Surface Outpatient Therapy Assessment Impairments Problems/Impairmments Impaired Strength,Impaired Endurance,Impaired Gait Pattern,Impaired Household Care,Impaired Stepping on Uneven Surface,Impaired
== END 2020-08-15 10:05 | disposition home or self-care (01) ==
LOC: PT 10:00
PROVIDERS: PCP Internal Medicine Adolescent Medicine; Visit Provider Internal Medicine Adolescent Medicine
DX: H81.13 Benign paroxysmal vertigo, bilateral (principal)
CPT/HCPCS: 97110; 97112; 97163

== ENCOUNTER → 2021-03-28 12:07 | Outpatient (CLI) | payer OTHER, SELFPAY ==
[2021-03-28 13:03] LABS: Basophils # 0.1 K/mm3 (0-0.2); Basophils % 0.7 % (0.1-2.0); Eosinophils # 0.2 K/mm3 (0.0-0.4); Eosinophils % 1.2 % (0.1-12.0); Hematocrit 40.4 % (37.0-47.0); Hemoglobin 12.3 g/dL (12.2-16.2); Lymphocytes # 3.6 K/mm3 (0.7-4.5); Lymphocytes % 29.7 % (10-50); Mean Corpuscular HGB Conc 30.5 g/dL (31.8-35.4); Mean Platelet Volume 7.6 fl (7.4-10.4); Monocytes # 0.7 K/mm3 (0.1-1.0); Monocytes % 5.5 % (1.7-9.3); Neutrophils # 7.6 K/mm3 (1.8-7.8); Neutrophils % 62.9 % (37.0-80.0); Platelet Count 303 K/mm3 (142-424); Red Blood Count 4.25 M/mm3 (4.20-5.40); Red Cell Distribution Width 13.7 % (11.5-17.5); White Blood Count 12.1 K/mm3 (4.8-10.8)
[2021-03-28 14:11] LABS: Chloride 105 mmol/L (98-107); Potassium 4.5 mmoL/L (3.5-5.1); Sodium 139 mmol/L (136-145)
[2021-03-28 14:13] LABS: Alanine Aminotransferase 10 U/L (12-78); Aspartate Amino Transferase 18 U/L (14-36); Blood Urea Nitrogen 9 mg/dl (7-17); Estimated Glomerular Filt Rate 74 ml/min (>60); GFR (African American) 89 ML/MIN (>60)
[2021-03-28 14:14] LABS: Albumin Level 4.3 g/dl (3.5-5.0); Albumin/Globulin Ratio 1.6 (1.1-1.8); Alkaline Phosphatase 91 U/L (38-126); Anion Gap 9.5 mEq/L (5-15); Bilirubin,Total 0.3 mg/dl (0.2-1.3); Calcium 9.4 mg/dl (8.4-10.2); Carbon Dioxide 29 mmol/L (22.0-30.0); Cholesterol 186 mg/dl (140-200); Globulin 2.7 g/dL (1.3-3.2); Glucose 83 mg/dl (74-100); HDL Cholesterol 41 mg/dl (40-60); Triglycerides 187 mg/dl (30-150); VLDL Cholesterol 37 mg/dL (0-40)
[2021-03-28 14:27] LABS: Direct LDL Cholesterol 112.31 mg/dL (100-129)
[2021-03-28 15:45] LABS: Hemoglobin A1C 5.3 % (4.0-6.0)
[2021-03-28 17:43] LABS: Vitamin B12 867 pg/mL (239-931)
[2021-03-28 18:18] LABS: Chol/HDL Ratio 4.5 (1-3.5)
== END ==
PROVIDERS: Visit Provider Internal Medicine Adolescent Medicine
DX: E78.00 Pure hypercholesterolemia, unspecified (principal); G62.9 Polyneuropathy, unspecified
CPT/HCPCS: 36415; 80053; 80061; 82607; 83036; 85025

== ENCOUNTER 2021-06-27 19:19 | Emergency (ER) | payer OTHER, SELFPAY ==
[2021-06-27 19:32] VITALS: BP 151/77; PULSE 69; RESP 17; O2SAT 98; BMI 34.7
--- NOTE | 2021-06-27 19:33 | ECG_ITS ---
APPROVED REPORT Exam: Resting ECG HR:63 bpm ECG Measurements Heart Rate 63 AXES MN 122 P 44 QRSd 78 QRS 66 QT 416 T 72 QTc 425 Conclusion Normal sinus rhythm Normal ECG Electronically signed by : Kofi Ortega MD 06/28/2021 08:38:12
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
[2021-06-27 20:06] LABS: Basophils # 0.1 K/mm3 (0-0.2); Basophils % 0.9 % (0.1-2.0); Eosinophils # 0.2 K/mm3 (0.0-0.4); Eosinophils % 1.8 % (0.1-12.0); Hemoglobin 12.9 g/dL (12.2-16.2); Lymphocytes # 4.2 K/mm3 (0.7-4.5); Lymphocytes % 34.9 % (10-50); Mean Corpuscular HGB Conc 31.5 g/dL (31.8-35.4); Mean Corpuscular Volume 95.2 fl (81-99); Mean Platelet Volume 7.9 fl (7.4-10.4); Monocytes # 0.6 K/mm3 (0.1-1.0); Monocytes % 4.9 % (1.7-9.3); Neutrophils # 6.8 K/mm3 (1.8-7.8); Neutrophils % 57.4 % (37.0-80.0); Platelet Count 323 K/mm3 (142-424); Red Blood Count 4.31 M/mm3 (4.20-5.40); Red Cell Distribution Width 13.9 % (11.5-17.5); White Blood Count 11.9 K/mm3 (4.8-10.8)
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
[2021-06-27 20:42] LABS: Chloride 104 mmol/L (98-107)
[2021-06-27 20:43] LABS: Potassium 3.7 mmoL/L (3.5-5.1); Sodium 140 mmol/L (136-145)
[2021-06-27 20:45] LABS: Alanine Aminotransferase 13 U/L (12-78); Albumin Level 4.3 g/dl (3.5-5.0); Albumin/Globulin Ratio 1.4 (1.1-1.8); Alkaline Phosphatase 78 U/L (38-126); Anion Gap 12.7 mEq/L (5-15); Aspartate Amino Transferase 23 U/L (14-36); Bilirubin,Total 0.2 mg/dl (0.2-1.3); Blood Urea Nitrogen 9 mg/dl (7-17); Carbon Dioxide 27 mmol/L (22.0-30.0); Creatinine Clearance Estimated 106 mL/min (50-200); Estimated Glomerular Filt Rate 74 ml/min (>60); GFR (African American) 89 ML/MIN (>60); Globulin 3.1 g/dL (1.3-3.2); Total Protein,Serum 7.4 g/dl (6.3-8.2)
[2021-06-27 20:46] LABS: Calcium 9.2 mg/dl (8.4-10.2); Glucose 102 mg/dl (74-100)
[2021-06-27 21:01] VITALS: BP 172/80; PULSE 59; RESP 13; O2SAT 97
[2021-06-27 21:30] VITALS: BP 177/82; PULSE 62; RESP 14; O2SAT 98
[2021-06-27 22:04] VITALS: BP 147/80; PULSE 78; RESP 18; TEMP 36.8; O2SAT 99
== END 2021-06-27 22:07 | disposition home or self-care (01) ==
PROVIDERS: Emergency Provider Emergency Medicine; PCP Internal Medicine Adolescent Medicine
DX: S39.012A Strain of muscle, fascia and tendon of lower back, initial encounter (principal); S16.1XXA Strain of muscle, fascia and tendon at neck level, initial encounter; V43.62XA Car passenger injured in collision with other type car in traffic accident, initial encounter; Y92.414 Local residential or business street as the place of occurrence of the external cause
CPT/HCPCS: 70450; 71045; 72125; 72128; 72131; 72170; 80053; 85025; 93005; 99283

== ENCOUNTER 2021-08-13 14:00 | Outpatient (RCR) | payer OTHER, SELFPAY ==
--- NOTE | 2021-05-12 15:00 | HMH.PTOPEV ---
PT Outpatient Evaluation Rehab PT Outpatient Evaluation Start: 05/12/21 14:48 Freq: Status: Active Protocol: Document 05/12/21 14:49 MARCIN (Rec: 05/12/21 14:59 [email or web address] [id number]) Electronically Signed By Heraclio Salas, PT 05/12/21 14:49 Outpatient Therapy Subjective History Subjective History This is the initial Physical Therapy evaluation for Luh Workman. Pt is a 55 y/o female referred to PT for c/o BLE paresthesia, weakness and falls. Pt rpeorts she has had back trouble and tingling in her legs for years. Pt reports recent cervical spinal sx. but was unspecific as to what kind of surgery was had. Pt reports that surgery was in Sep. and reports she felt improved for a few months but in Nov/Dec she began having increased falls, weakness and paresthesia. Chief Complaint Gives out/Unstable,Paresthesia ,Weakness Symptom Type Numbness,Shooting Symptoms Relieved By Rest/Positioning Symptoms Aggravated By Standing,Bending/Stooping, Physical Activity,Walking Current Functional Limitations Housework,Standing,Recreation Activity,Walking,Stairs, Balance Symptom Description Constant but Variable Lumbopelvic Eval Posture Lumbar Spine Posture Standing Position Flattened Assistive device Assistive Devices None / NA Manual Muscle Test Bilateral Extensor Hallucis Longus Strength Grade 5 Normal Ankle Dorsiflexion Strength Grade 5 Normal Altered Sensation LE Dermatome Level L5,S1 Comment increased paresthesia in BLE L5/S1 dermatomes Special Tests Lumbar Spine Screen Positive Forward Bending Test- Standing Positive Left,Positive Right Forward Bending Test- Sitting Positive Left,Positive Right Unilateral Straight Leg Raise (Lasegue) Positive Right Test Outpatient Therapy Assessment Impairments Problems/Impairmments Impaired Endurance,Impaired Walking,Impaired Standing, Impaired Shower/Bathing, Impaired Household Care, Impaired Stair Climbing, Impaired S
== END 2021-08-13 14:05 | disposition home or self-care (01) ==
LOC: PT 14:00
PROVIDERS: PCP Internal Medicine Adolescent Medicine; Visit Provider Internal Medicine Adolescent Medicine
DX: R20.2 Paresthesia of skin (principal); M79.605 Pain in left leg; M79.604 Pain in right leg
CPT/HCPCS: 97010; 97110; 97163; 97164

== ENCOUNTER 2021-10-08 14:00 | Outpatient (RCR) | payer OTHER, SELFPAY | END 2021-10-08 14:05 | disposition home or self-care (01) | LOC: PT 14:00 | PROVIDERS: PCP Internal Medicine Adolescent Medicine; Visit Provider Orthopaedic Surgery | DX: M54.2 Cervicalgia (principal) | CPT/HCPCS: 97014; 97035; 97110; 97140; 97163; 97164; G0283 ==

== ENCOUNTER → 2022-01-23 13:47 | Outpatient (CLI) | payer OTHER, SELFPAY ==
--- NOTE | 2022-01-23 | CA_ITS ---
FINAL REPORT TECHNIQUE: Bilateral lower extremity venous duplex was performed with augmentation and compression. CLINICAL HISTORY: Patient states she has a spot on the posterior calf of right lower extremity that's been there for a while and it's getting worse with time. She states there is a sore spot on the top of the left foot. She denies trauma. Diabetes II, HLD. FINDINGS: Proper flow is seen throughout the deep venous systems bilaterally. There is no evidence of deep venous thrombosis. IMPRESSION: No evidence of deep venous thrombosis. Reviewed, Interpreted and Dictated by Arsenio Sharp MD Transcribed by My Mary Authenticated by Arsenio Sharp MD on 01/23/2022 03:45:08 PM [facility]
== END ==
PROVIDERS: PCP Internal Medicine Adolescent Medicine; Visit Provider Internal Medicine Adolescent Medicine
DX: M79.605 Pain in left leg (principal); M79.604 Pain in right leg; M79.89 Other specified soft tissue disorders
CPT/HCPCS: 93970

== ENCOUNTER 2022-06-30 11:27 | Emergency (ER) | payer OTHER, SELFPAY ==
[2022-06-30 11:38] VITALS: BP 131/59; PULSE 63; RESP 16; TEMP 36.9; O2SAT 96; BMI 35.6
--- NOTE | 2022-06-30 11:47 | XR_ITS ---
FINAL REPORT CLINICAL HISTORY: fall FINDINGS: Multiple views of the right femur were obtained. There is no acute fracture or dislocation. Visualized joint spaces are intact. There is no acute soft tissue abnormality. IMPRESSION: No acute process. Reviewed, Interpreted and Dictated by Guille Caba III, MD Transcribed by Fritz Barker Authenticated and [facility]
--- NOTE | 2022-06-30 11:47 | XR_ITS ---
FINAL REPORT CLINICAL HISTORY: fall FINDINGS: Two views of the right tibia-fibula demonstrate no acute fracture or dislocation. The joint spaces appear normal. The visualized bony structures are well aligned. No soft tissue abnormality is seen. IMPRESSION: No acute process. Reviewed, Interpreted and Dictated by Guille Caba III, MD Transcribed by Fritz Barker Authenticated and . [facility]
--- NOTE | 2022-06-30 11:47 | XR_ITS ---
FINAL REPORT CLINICAL HISTORY: fall FINDINGS: 2 views of the right hip and an AP pelvis were obtained. There is no acute fracture or dislocation. There are mild degenerative changes. There are no soft tissue abnormalities. IMPRESSION: No acute fracture. If symptoms are severe or worsen consider CT or MRI. Reviewed, Interpreted and Dictated by Guille Caba III, MD Transcribed by Fritz Barker Authenticated and [facility]
--- NOTE | 2022-06-30 11:47 | XR_ITS ---
FINAL REPORT CLINICAL HISTORY: fall FINDINGS: Three views of the right knee reveal no evidence of fracture or dislocation. The bony alignment is normal. There is mild medial compartment degenerative change. There is no evidence of joint effusion. No localized soft tissue abnormality is identified. IMPRESSION: No acute abnormality identified. Reviewed, Interpreted and Dictated by Guille Caba III, MD Transcribed by Fritz Barker Authenticated and . [facility]
--- NOTE | 2022-06-30 11:48 | PC.NURSE ---
Notified radiology of xray orders.
--- NOTE | 2022-06-30 11:51 | PC.NURSE ---
pt to radiology via stretcher with radial drill press operator for plastic
--- NOTE | 2022-06-30 11:51 | PC.NURSE ---
PT TO RADIOLOGY AT THIS TIME PER STRETCHER
[2022-06-30 12:30] VITALS: BP 114/70; PULSE 63; O2SAT 98
--- NOTE | 2022-06-30 12:35 | PC.NURSE ---
ED MD AT BEDSIDE FOR EVALUATION
--- NOTE | 2022-06-30 12:39 | HMH.EDGENADL ---
Discharge Plan Disposition Patient Disposition: Home, Self-Care Condition: Good Chief Complaint: Fall Prescriptions Prescriptions: No Action acetaminophen 500 mg capsule 500 mg capsule 500 mg PO Q6H PRN (Reason: pain) calcium carbonate-vitamin D3 600 mg(1,500mg) -200 unit tablet 1 tab PO DAILY Label Comments: TAKE 1 TABLET BY MOUTH TWICE DAILY citalopram 40 MG tablet 40 mg PO DAILY pravastatin 40 MG tablet 40 mg PO DAILY ergocalciferol (vitamin D2) 400 UNIT tablet 400 unit PO DAILY tizanidine 4 MG tablet 4 mg PO DAILY albuterol sulfate 5 MG/ML solution 5 mg IH DAILY PRN (Reason: COPD) loratadine 10 MG tablet 10 mg PO DAILY tiotropium-olodaterol 4 GM mist 4 gm IH DAILY Referrals Follow up/Referrals: Thom Crandall MD [Primary Care Provider] - See instructions Activity Restrictions/Add. Instructions Additional Instructions/Restrictions: Tylenol or ibuprofen for pain. Follow-up with primary care provider if not improved in 2 to 3 days. Clinical Impressions Clinical Impression: Fall, Lower extremity pain, right Discharge ED Provider: Martinez Valdez General Adult HPI General Chief complaint: Fall Stated complaint: AO [email or web address] 06/30/22 07:30 hip pain Time Seen by Provider: 06/30/22 12:30 Mode of Arrival: Ambulatory Limitations: No Limitations Description of Symptoms (Recalled from ER Triage Doc. by RN): Pt c/o rt hip pain that extends down to approx 3 inches below the knee. Advises that her dog had urinated on the floor this AM and she slipped in it. Denies hitting her head or any other body parts. History of Present Illness HPI narrative: Patient states that she fell this morning. She does not really know how she landed. Primarily complains of pain in her right lower extremity. Says that the worst pain is in her right calf. However, she hurts all the way up her right lower extremity to the buttock and sacroiliac area. She is able to walk, at baseline walks with a rolling walker. States that laying here she is started to get stiff all over. Related Data Home Medications Medication Instructions Recorded Confirmed citalopram 40 mg tablet 40 mg PO DAILY Depression 01/19/18 03/08/20 ergocalciferol (vitamin D2) 10 mcg 400 unit PO DAILY Supplement 01/19/18 03/08/20 (400 unit) tablet pravastatin 40 mg tablet 40 mg PO DAILY Cholesterol 01/19/18 03/08/20 albuterol sulfate 5 mg/mL(0.5 %) 5 mg IH DAILY PRN COPD 07/12/19 03/08/20 solution for nebulization loratadine 10 mg tablet 10 mg PO DAILY allergies 07/12/19 03/08/20 tiotropium 2.5 mcg-olodaterol 2.5 4 gm IH DAILY COPD 07/12/19 03/08/20 mcg/actuation mist for inhalation tizanidine 4 mg tablet 4 mg PO DAILY muscle relaxer 07/12/19 03/08/20 acetaminophen 500 mg capsule 500 mg PO Q6H PRN pain 01/12/20 03/08/20 calcium carbonate 600 mg-vitamin 1 tab PO DAILY Supplement 01/12/20 03/08/20 D3 5 mcg (200 unit) tablet Allergies Allergy/AdvReac Type Severity Reaction Status Date / Time hydrocodone [HYDROCODONE] Allergy Intermediate I-ITCHING Verified 03/08/20 09:31 codeine [CODEINE] Allergy Mild Verified 03/08/20 09:31 [facility] Social History Smoking Status: Current every day smoker tobacco type: cigarettes packs per day: 1 alcohol intake: never substance use type: denies use current occupational status: employed Travel in the last 8 weeks: None caffeine: Yes ROS Obtained: Yes Systems reviewed as appropriate & no additional complaints except as documented Constitutional Constitutional: Denies weakness Musculoskeletal Musculoskeletal: Reports as per HPI and Denies numbness Neurologic Neurologic: Denies numbness and Denies weakness Physical Exam General General appearance: alert and in no apparent distress Head Head exam: atraumatic and normocephalic Eye Eye exam: Present normal appearance and EOMI Neck Neck exam: Present normal inspection and trachea midli
--- NOTE | 2022-06-30 12:47 | PC.NURSE ---
CAROLE Juarez at BS to go over discharge instructions
[2022-06-30 12:49] VITALS: BP 114/70; PULSE 60; RESP 16; TEMP 36.8; O2SAT 95
== END 2022-06-30 12:51 | disposition home or self-care (01) ==
PROVIDERS: Emergency Provider Emergency Medicine; PCP Internal Medicine Adolescent Medicine
DX: M79.604 Pain in right leg (principal); W01.0XXA Fall on same level from slipping, tripping and stumbling without subsequent striking against object, initial encounter; Y92.009 Unspecified place in unspecified non-institutional (private) residence as the place of occurrence of the external cause; Z88.6 Allergy status to analgesic agent; Z72.0 Tobacco use
CPT/HCPCS: 73502; 73552; 73562; 73590; 99284

== ENCOUNTER → 2022-08-27 07:29 | Outpatient (CLI) | payer MEDICAID, SELFPAY ==
--- NOTE | 2022-08-27 07:32 | CT_ITS ---
FINAL REPORT CLINICAL HISTORY: H/O NICOTINE DEPENDENCE COMPARISON: 03/22/2020 FINDINGS: Low-Dose Chest CT Axial images were obtained from the lung apex to the mid abdomen by computed tomography. Low-dose protocol was utilized. CTDI vol (mGy): 2.90 DLP (mGy-cm): 99.51 There are postoperative changes in the lower cervical spine. There is no axillary adenopathy. There is no hilar or mediastinal adenopathy. The heart is proper size. There are moderate to severe left coronary artery calcifications which are visually worse. There is no pericardial or pleural effusion. Lung window images demonstrate no suspicious infiltrate or nodule. There are mild changes of emphysema with mild pulmonary scarring. There are bilateral calcified granulomas. No new mass or nodule is identified. Limited images of the upper abdomen demonstrate changes from cholecystectomy. IMPRESSION: No new mass or nodule is identified. S modifier: Moderate-severe left coronary artery calcification, worse. Lung RADS category 1S. Recommend 12 month follow-up low-dose chest CT. Reviewed, Interpreted and Dictated by Guille Caba III, MD Transcribed by My Mary Authenticated and . [facility]
--- NOTE | 2022-08-27 07:33 | XR_ITS ---
FINAL REPORT TECHNIQUE: Bone densitometry calculations of the lumbar spine and hip were obtained. CLINICAL HISTORY: post menopausal COMPARISON: 06/07/2019 FINDINGS: DEXA BONE DENSITY AXIAL SKELETON Using L1-4, the bone mineral density of the spine is 1.003 g/cm2, corresponding to T-score of -0.4. Note these values may be falsely elevated secondary to hypertrophic change. On today's exam L1 through L4 were measured and on the prior exam L1 through L3 were measured therefore a valid comparison cannot be made. Using the left hip, the bone mineral density of the femoral neck is 0.766 g/cm2, corresponding to a T-score of -1.4. Previously measured 0.855 g/cm2, corresponding to T-score of -1.3. NOTE: T-score: Standard deviation compared with peak bone mass of young adult mean. *Following the recommendations of the International Society of Bone densitometry, classification of hip BMD is based on the lower of two T-scores; total hip or femoral neck. IMPRESSION: Diminished bone mineral density of the lumbar spine and left hip consistent with osteopenia. FRAX 10 year fracture risk is 0.5 present for a hip fracture and 6.2% for a major osteoporotic fracture. Reviewed, Interpreted and Dictated by Guille Caba III, MD Transcribed by My Mary Authenticated and [facility]
--- NOTE | 2022-08-27 07:33 | MM_ITS ---
PROCEDURE INFORMATION: Exam: MG Bilateral Screening 3D Mammography Exam date and time: 08/27/2022 8:18 AM Age: 56 years old Clinical indication: Screening examination. A paternal aunt had breast cancer. TECHNIQUE: Imaging protocol: Bilateral Screening tomosynthesis and 2D mammography including computer-aided detection (CAD) when performed. COMPARISON: 1. MG DIG MAMM-SCREEN ELY 05/18/2019 8:40 AM 2. MG DMSB DIG MAMM-SCREEN ELY W/CAD 01/06/2017 4:09 PM 3. MG DIGMAMMDX MAMMOGRAM DX-AUTOMOTIVE SALESPERSON N/C 07/10/2013 8:25 AM 4. MG DMSB DIGITAL MAMM-SCREEN BILATERAL 07/08/2010 8:41 AM FINDINGS: MAMMOGRAPHY: Breast composition: There are scattered areas of fibroglandular density. Mass: None. Architectural distortion: None. Calcifications: No suspicious calcifications. Asymmetric density: None. Skin thickening: None. Axillary adenopathy: None. IMPRESSION: No mammographic evidence of malignancy. Annual screening is recommended unless otherwise clinically indicated. ASSESSMENT: BI-RADS Category 1: Negative
== END ==
PROVIDERS: PCP Nurse Practitioner Family; Visit Provider Nurse Practitioner Family
DX: Z12.31 Encounter for screening mammogram for malignant neoplasm of breast (principal); Z78.0 Asymptomatic menopausal state; Z87.891 Personal history of nicotine dependence; Z12.2 Encounter for screening for malignant neoplasm of respiratory organs
CPT/HCPCS: 71271; 77063; 77067; 77080

== ENCOUNTER → 2023-02-05 09:09 | Outpatient (CLI) | payer MEDICAID, SELFPAY ==
[2023-02-05 09:43] LABS: Basophils # 0.1 K/mm3 (0-0.2); Eosinophils # 0.3 K/mm3 (0.0-0.4); Eosinophils % 3.4 % (0.1-12.0); Hematocrit 43.1 % (37.0-47.0); Hemoglobin 13.3 g/dL (12.2-16.2); Lymphocytes # 2.8 K/mm3 (0.7-4.5); Lymphocytes % 30.1 % (10-50); Mean Corpuscular Volume 96.6 fl (81-99); Mean Platelet Volume 8.2 fl (7.4-10.4); Monocytes # 0.5 K/mm3 (0.1-1.0); Monocytes % 5.5 % (1.7-9.3); Neutrophils # 5.6 K/mm3 (1.8-7.8); Platelet Count 297 K/mm3 (142-424); Red Blood Count 4.46 M/mm3 (4.20-5.40); Red Cell Distribution Width 13.6 % (11.5-17.5); White Blood Count 9.4 K/mm3 (4.8-10.8)
[2023-02-05 10:08] LABS: Chloride 105 mmol/L (98-107); Sodium 140 mmol/L (136-145)
[2023-02-05 10:09] LABS: Potassium 4.4 mmoL/L (3.5-5.1)
[2023-02-05 10:11] LABS: Alanine Aminotransferase 15 U/L (12-78); Albumin Level 4.1 g/dl (3.5-5.0); Albumin/Globulin Ratio 1.5 (1.1-1.8); Alkaline Phosphatase 84 U/L (38-126); Anion Gap 11.4 mEq/L (5-15); Aspartate Amino Transferase 21 U/L (14-36); Bilirubin,Total 0.3 mg/dl (0.2-1.3); Blood Urea Nitrogen 13 mg/dl (7-17); Calcium 9.1 mg/dl (8.4-10.2); Carbon Dioxide 28 mmol/L (22.0-30.0); Cholesterol 149 mg/dl (140-200); Estimated Glomerular Filt Rate 86 ml/min (>60); GFR (African American) 104 ML/MIN (>60); Globulin 2.8 g/dL (1.3-3.2); Glucose 85 mg/dl (74-100); Total Protein,Serum 6.9 g/dl (6.3-8.2); Triglycerides 156 mg/dl (30-150); VLDL Cholesterol 31 mg/dL (0-40)
[2023-02-05 10:30] LABS: Direct LDL Cholesterol 99.43 mg/dL (100-129)
[2023-02-05 13:32] LABS: Chol/HDL Ratio 3.2 (1-3.5); HDL Cholesterol 46 mg/dl (40-60)
== END ==
PROVIDERS: PCP Nurse Practitioner Family; Visit Provider Nurse Practitioner Family
DX: I10 Essential (primary) hypertension (principal); E78.00 Pure hypercholesterolemia, unspecified; J44.9 Chronic obstructive pulmonary disease, unspecified
CPT/HCPCS: 36415; 80053; 80061; 85025

== ENCOUNTER → 2023-02-08 12:58 | Outpatient (CLI) | payer MEDICAID, SELFPAY ==
--- NOTE | 2023-02-08 13:03 | XR_ITS ---
FINAL REPORT CLINICAL HISTORY: POSTERIOR RT KNEE PAIN COMPARISON: 06/30/2022 FINDINGS: Three views of the right knee reveal no evidence of fracture or dislocation. The bony alignment is normal. The joint spaces are preserved. There is no evidence of joint effusion. No localized soft tissue abnormality is identified. IMPRESSION: No acute abnormality identified. Reviewed, Interpreted and Dictated by Guille Caba III, MD Transcribed by My Mary Authenticated and [facility]
== END ==
PROVIDERS: PCP Nurse Practitioner Family; Visit Provider Nurse Practitioner Family
DX: M25.561 Pain in right knee (principal)
CPT/HCPCS: 73562

== ENCOUNTER 2023-05-07 16:00 | Outpatient (RCR) | payer MEDICAID, SELFPAY ==
--- NOTE | 2023-02-25 09:49 | HMH.PTOPEV ---
PT Outpatient Evaluation Rehab PT Outpatient Evaluation Start: 02/25/23 08:27 Freq: Status: Active Protocol: Document 02/25/23 08:27 TASHA (Rec: 02/25/23 09:48 TASHA [id number]) E-signed By John Morales, PT Outpatient Therapy Subjective History Subjective History Pt reports fall in parking lot ~45 days ago, injury/ irritation to right knee. Pt reports medial aspect right knee/lower leg area since fall , h/o lumbar region issues w/ b/l LE neuropathy, 'but this feels more like a knee issue.' Pt reports standing and pivoting on RLE is the most provocative for that area. Chief Complaint Pain,Stiff,Swelling,Weakness Symptom Type Ache,Sharp,Dull Symptoms Relieved By Rest/Positioning Symptoms Aggravated By Standing,Physical Activity, Walking Prior Functional Limitations Housework,Standing,Walking Current Functional Limitations Housework,Standing,Walking Symptom Description Constant but Variable Level of pain today (0-10) 3 Pain scale - at its best (0-10) 2 Pain scale - at its worst (0-10) 8 Hip/Knee Eval Gait Observation General Gait Pattern Observation Antalgic Gait Assistive Device Assistive Devices Rolling / Wheeled Walker Palpation Tenderness right Knee Palpation Overall Comment 3/4 pes anserine insertion MMT Hip Flexion Strength Grade 4 Good Hip Abduction Strength Grade 4- Good- Hip Adduction Strength Grade 4- Good- Hip Extension Strength Grade 3+ Fair+ Knee Extension Strength Grade 5 Normal Knee Flexion Strength Grade 4 Good ROM Knee Flexion Active Range of Motion ( 0-131 degrees) Outpatient Therapy Assessment Impairments Problems/Impairmments Palpation Tenderness,Impaired Range of Motion,Impaired Strength,Impaired Gait Pattern ,Impaired Walking,Impaired Standing,Impaired Household Care,Subjective C/O Pain, Impaired Self Care/Self Management Prognosis Rehab Potential Good Clinical Impression Consistent with Diagnosis Yes Short Term Goals Number of Weeks 4 Decreased Palpation Tenderness Yes: 1-2/4 right knee/LE Increase Range of Motion Yes: R KNEE AROM WFL W/O PAIN Increase Strength Yes: 4/5 RLE Increase Ability to Walk
--- NOTE | 2023-04-07 16:54 | HMH.RHREAS ---
Rehab Reassessment Rehab OP Re-assessment Start: 04/07/23 16:31 Freq: Status: Active Protocol: Document 04/07/23 16:31 TASHA (Rec: 04/07/23 16:54 TASHA [id number]) E-signed By John Morales, PT Rehab Re-assessment Subjective Subjective Pt reports 0/10 right knee pain on VAs this pm, and feels much better related to localized right knee and strength since I eval Objective Objective Notes MMT: RIGHT LE KNEE EXT 4+/5 KNEE FLX 4-4+/5, HIP FLX 4-4+/ 5, HIP ADD 4+-5/5, HIP ABD 4/5 , HIP EXT 4/5 TTP: RIGHT KNEE MEDIAL JT LINE 11/04, RIGHT PES ANSERINE INSERTION 1-12/05 AROM: R KNEE FLX 0-130 GAIT: MILDLY ANTLAGIC RLE W/RW Assessment Progress Assessment Progressing as Expected Assessment Notes SIGNIFICANT IMPROVEMENTS IN RIGHT KNEE/LE STRENGTH AND TTP Patient goals met STG'S 06/08 LTG'S 01/06 Goals Not Met LTG'S 03/08 Plan Plan Pt to continue w/skilled P.T. to make further improvements in right LE strength, ROM, TTP , and gait to allow for optimal function Frequency of Therapy 1-2x/wk Duration of therapy 3-5wks Time and Billing Re-Eval Time 12 Re-Eval Billing Units 1 PHYSICIAN CERTIFICATION: I certify the specified therapy services for Luh Workman are required, authorized, and reviewed every 30 days.
== END 2023-05-07 16:05 | disposition home or self-care (01) ==
LOC: PT 16:00
PROVIDERS: PCP Nurse Practitioner Family; Visit Provider Nurse Practitioner Family
DX: M79.604 Pain in right leg (principal)
CPT/HCPCS: 97010; 97014; 97035; 97110; 97163; 97164; 97530; G0283

== ENCOUNTER → 2023-10-08 09:31 | Outpatient (CLI) | payer MEDICAID, SELFPAY ==
--- NOTE | 2023-10-08 09:36 | XR_ITS ---
FINAL REPORT CLINICAL HISTORY: Postmenopausal osteoporosis screening COMPARISON: 08/27/2022 FINDINGS: Using L1-4, the bone mineral density of the spine is 1.036 g/cm2, corresponding to T-score of -0.1, within normal limits. Previously 1.003 g/cm? with T-score of -0.4. Using the left hip, the bone mineral density of the femoral neck is 0.829 g/cm2, corresponding to a T-score of -0.9, within normal limits. Previously 0.766 g/cm? with T-score of -1.4. Using the right hip, the bone mineral density of the femoral neck is 0.869 g/cm2, corresponding to a T-score of -0.6, within normal limits. Previously 0.774 g/cm? with T-score of -1.4. FRAX not reported because all T-scores at or above -1.0. NOTE: T-score: Standard deviation compared with peak bone mass of young adult mean. *Following the recommendations of the International Society of Bone densitometry, classification of hip BMD is based on the lower of two T-scores; total hip or femoral neck. IMPRESSION: Normal bone mineral density of the lumbar spine and hips. Reviewed, Interpreted and Dictated by Guille Caba III, MD Transcribed by Pia Abreu Authenticated and [facility]
== END ==
PROVIDERS: PCP Nurse Practitioner Family; Visit Provider Nurse Practitioner Family
DX: Z78.0 Asymptomatic menopausal state (principal)
CPT/HCPCS: 77080

== ENCOUNTER 2024-01-07 09:02 | Outpatient (CLI) | payer MEDICAID, SELFPAY ==
[2024-01-07 10:02] LABS: Basophils # 0.1 K/mm3 (0-0.2); Basophils % 1.1 % (0.1-2.0); Eosinophils # 0.3 K/mm3 (0.0-0.4); Eosinophils % 3.4 % (0.1-12.0); Hemoglobin 12.9 g/dL (12.2-16.2); Lymphocytes # 2.6 K/mm3 (0.7-4.5); Lymphocytes % 33.6 % (10-50); Mean Corpuscular HGB Conc 31.6 g/dL (31.8-35.4); Mean Corpuscular Hemoglobin 31.9 pg (27.0-31.2); Mean Corpuscular Volume 101.3 fl (81-99); Mean Platelet Volume 8.2 fl (7.4-10.4); Monocytes # 0.4 K/mm3 (0.1-1.0); Monocytes % 5.1 % (1.7-9.3); Neutrophils # 4.5 K/mm3 (1.8-7.8); Neutrophils % 56.9 % (37.0-80.0); Platelet Count 253 K/mm3 (142-424); Red Blood Count 4.05 M/mm3 (4.20-5.40); Red Cell Distribution Width 13.1 % (11.5-17.5); White Blood Count 7.8 K/mm3 (4.8-10.8)
[2024-01-07 10:25] LABS: Alanine Aminotransferase 20 U/L (12-78); Albumin Level 4.2 g/dl (3.5-5.0); Albumin/Globulin Ratio 1.7 (1.1-1.8); Alkaline Phosphatase 71 U/L (38-126); Anion Gap 8.6 mEq/L (5-15); Aspartate Amino Transferase 26 U/L (14-36); Bilirubin,Total 0.3 mg/dl (0.2-1.3); Blood Urea Nitrogen 14 mg/dl (7-17); Calcium 9.3 mg/dl (8.4-10.2); Carbon Dioxide 28 mmol/L (22.0-30.0); Chloride 108 mmol/L (98-107); Chol/HDL Ratio 4.1 (1-3.5); Cholesterol 179 mg/dl (140-200); Estimated Glomerular Filt Rate 64 ml/min (>60); GFR (African American) 77 ML/MIN (>60); Globulin 2.5 g/dL (1.3-3.2); Glucose 88 mg/dl (74-100); HDL Cholesterol 44 mg/dl (40-60); Potassium 4.6 mmoL/L (3.5-5.1); Sodium 140 mmol/L (136-145); Total Protein,Serum 6.7 g/dl (6.3-8.2); Triglycerides 138 mg/dl (30-150); VLDL Cholesterol 28 mg/dL (0-40)
[2024-01-07 10:36] LABS: Direct LDL Cholesterol 94.44 mg/dL (100-129)
[2024-01-07 11:05] LABS: Hemoglobin A1C 5.5 % (4.0-6.0)
[2024-01-07 11:32] LABS: Folate > 20.00 ng/mL; Vitamin B12 > 1000 pg/mL (239-931)
== END 2024-01-07 23:59 ==
LOC: LAB 09:03
PROVIDERS: PCP Nurse Practitioner Family; Visit Provider Nurse Practitioner Family
DX: E78.2 Mixed hyperlipidemia (principal); R73.01 Impaired fasting glucose; E53.8 Deficiency of other specified B group vitamins
CPT/HCPCS: 36415; 80053; 80061; 82607; 82746; 83036; 85025

== ENCOUNTER 2024-05-03 12:31 | Outpatient (CLI) | payer MEDICAID, SELFPAY ==
--- NOTE | 2024-05-03 12:38 | XR_ITS ---
FINAL REPORT CLINICAL HISTORY: S/P FUSION COMPARISON: None FINDINGS: 3 views of the lumbar spine were obtained. Fusion L4-S1. There is no evidence of fracture. There is no malalignment. Leftward curvature is noted of the lumbosacral spine. The vertebrae are normal in height. Disc spaces are preserved. Vascular calcifications are noted. IMPRESSION: No acute bony abnormality. Reviewed, Interpreted and Dictated by Guille Caba III, MD Transcribed by Pia Abreu Authenticated and [facility]
== END 2024-05-03 23:59 | disposition home or self-care (01) ==
PROVIDERS: PCP Nurse Practitioner Family; Visit Provider Physician Assistant
DX: Z98.1 Arthrodesis status (principal)
CPT/HCPCS: 72100

== ENCOUNTER 2024-05-24 11:00 | Outpatient (RCR) | payer MEDICAID, SELFPAY | END 2024-05-24 11:05 | disposition home or self-care (01) | LOC: PT 11:00 | PROVIDERS: Visit Provider Physical Medicine & Rehabilitation | DX: M43.16 Spondylolisthesis, lumbar region (principal) | CPT/HCPCS: 97010; 97014; 97110; 97163; G0283 ==

== ENCOUNTER 2024-07-31 14:39 | Outpatient (CLI) | payer MEDICAID, SELFPAY ==
--- NOTE | 2024-07-31 14:44 | MM_ITS ---
PROCEDURE INFORMATION: Exam: MG Bilateral Screening 3D Mammography Exam date and time: 07/31/2024 2:49 PM Age: 58 years old Clinical indication: Screening examination TECHNIQUE: Imaging protocol: Bilateral Screening tomosynthesis and 2D mammography including computer-aided detection (CAD) when performed. COMPARISON: 1. MG MM DIG SCREENING MAMM BI W/CAD 08/27/2022 8:18 AM 2. MG DIG MAMM-SCREEN ELY 05/18/2019 8:40 AM FINDINGS: MAMMOGRAPHY: Breast composition: There are scattered areas of fibroglandular density. Mass: No suspicious masses. Architectural distortion: None. Calcifications: No suspicious calcifications. Asymmetric density: None. Skin thickening: None. Axillary adenopathy: None. IMPRESSION: No mammographic evidence of malignancy. Annual screening is recommended unless otherwise clinically indicated. ASSESSMENT: BI-RADS Category 1: Negative.
--- NOTE | 2024-07-31 14:45 | CT_ITS ---
FINAL REPORT TECHNIQUE: Axial CT images of the chest were obtained without contrast. Low-dose protocol was utilized. This study was performed with techniques to keep radiation doses as low as reasonably achievable (ALARA). Individualized dose reduction techniques using automated exposure control or adjustment of mA and/or kV according to the patient's size were employed. CLINICAL HISTORY: SCREENING, 1ppd for 47 years, current smoker COMPARISON: 08/27/2022 FINDINGS: CT CHEST WITHOUT, LOW DOSE SCREENING CT Di Vol: 2.90 mGy DLP: 95.60 mGy*cm Calcified bilateral hilar lymph nodes are present. The heart size is normal. There are moderate coronary artery calcifications. There is no pleural or pericardial effusion. The lung windows show no suspicious mass or nodule. Limited images of the upper abdomen demonstrate no acute findings. IMPRESSION: No suspicious mass or nodule. LR Category 1: 12 month follow-up low-dose chest CT is recommended per Fleischner criteria. Reviewed, Interpreted and Dictated by Arsenio Sharp MD Transcribed by Pia Abreu Authenticated and . [facility]
== END 2024-07-31 23:59 | disposition home or self-care (01) ==
LOC: RAD 14:40
PROVIDERS: PCP Internal Medicine Adolescent Medicine; Visit Provider Nurse Practitioner Family
DX: Z12.31 Encounter for screening mammogram for malignant neoplasm of breast (principal); Z87.891 Personal history of nicotine dependence
CPT/HCPCS: 71271; 77063; 77067

== ENCOUNTER 2024-12-22 11:30 | Outpatient (CLI) | payer MEDICAID, SELFPAY ==
--- NOTE | 2024-12-22 11:33 | XR_ITS ---
FINAL REPORT CLINICAL HISTORY: Left foot pain FINDINGS: AP, oblique and lateral views of the left foot were obtained. There is no acute fracture or dislocation. There is normal mineralization. The joint spaces are preserved. Soft tissues are unremarkable. IMPRESSION: No acute osseous abnormality of the left foot. Reviewed, Interpreted and Dictated by Serene Forte MD Transcribed by Ronel Rodriguez Authenticated and [facility]
--- NOTE | 2024-12-22 11:33 | XR_ITS ---
FINAL REPORT CLINICAL HISTORY: Right foot pain FINDINGS: AP, oblique and lateral views of the right foot were obtained. There is no acute fracture or dislocation. There is normal mineralization. There is mild degenerative disease at the first metatarsophalangeal joint. Remaining joint spaces are preserved. Soft tissues are unremarkable. IMPRESSION: No acute osseous abnormality of the right foot. Reviewed, Interpreted and Dictated by Serene Forte MD Transcribed by Ronel Rodriguez Authenticated and [facility]
--- NOTE | 2024-12-22 11:33 | XR_ITS ---
FINAL REPORT CLINICAL HISTORY: Right hip pain had back surgery in april 2024, persistent hip pain since. COMPARISON: 06/30/2022 FINDINGS: AP and frog leg views of the right hip were obtained. There is no acute fracture or dislocation. Joint space is preserved. Soft tissues are unremarkable. Postoperative changes are seen in the lower lumbar spine. IMPRESSION: No acute osseous abnormality of the right hip. No change from the prior exam. Reviewed, Interpreted and Dictated by Serene Forte MD Transcribed by Ronel Rodriguez Authenticated and [facility]
[2024-12-22 14:35] LABS: Triglycerides 101 mg/dl (30-150); VLDL Cholesterol 20 mg/dL (0-40)
[2024-12-22 14:36] LABS: Chol/HDL Ratio 2.8 (1-3.5); Cholesterol 168 mg/dl (140-200); HDL Cholesterol 61 mg/dl (40-60)
[2024-12-22 14:46] LABS: Direct LDL Cholesterol 85.79 mg/dL (100-129)
[2024-12-22 14:54] LABS: Hemoglobin A1C 5.3 % (4.0-6.0)
[2024-12-25 13:10] LABS: Anti-Centromere B Antibodies <0.2 AI (0.0-0.9); Anti-DNA (DS) Ab Qn <1 IU/mL (0-9); Anti-Jo-1 <0.2 AI (0.0-0.9); Anti-Smith Antibody <0.2 AI (0.0-0.9); Antichromatin Antibodies <0.2 AI (0.0-0.9); Antiscleroderma-70 Antibodies <0.2 AI (0.0-0.9); RNP Antibodies <0.2 AI (0.0-0.9); Sjogren's Anti-SS-A <0.2 AI (0.0-0.9); Sjogren's Anti-SS-B <0.2 AI (0.0-0.9)
== END 2024-12-22 23:59 | disposition home or self-care (01) ==
LOC: RAD 11:31
PROVIDERS: PCP Internal Medicine; Visit Provider Internal Medicine
DX: M25.551 Pain in right hip (principal); M79.671 Pain in right foot; M79.672 Pain in left foot; M25.50 Pain in unspecified joint; Z13.220 Encounter for screening for lipoid disorders; Z13.1 Encounter for screening for diabetes mellitus
CPT/HCPCS: 73502; 73630; 80061; 83036; 86225; 86235

== ENCOUNTER 2024-12-28 13:07 | Outpatient (CLI) | payer MEDICAID, SELFPAY ==
--- NOTE | 2024-12-28 13:11 | US_ITS ---
FINAL REPORT CLINICAL HISTORY: Decreased Pedal Pulses, current smoker, hx TIA, bilateral claudication, bilateral rest pain COMPARISON: None FINDINGS: LOWER EXTREMITY SEGMENTAL PRESSURE MEASUREMENTS FINDINGS: Pressure indices are as follows: RIGHT LOWER EXTREMITY: Thigh: 1.08 Calf: 1.19 Ankle, posterior tibial artery: 1.12 Ankle, dorsalis pedis: 1.10 Toe: 0.91 1.12 Comments: Normal LEFT LOWER EXTREMITY: Thigh: 1.12 Calf: 1.17 Ankle, posterior tibial artery: 1.15 Ankle, dorsalis pedis: 1.07 Toe: 0.83 1.15 Comments: Normal IMPRESSION: No evidence of significant peripheral vascular disease. Reviewed, Interpreted and Dictated by Luiza Arias MD Transcribed by Pia Abreu Authenticated and . [facility]
== END 2024-12-28 23:59 | disposition home or self-care (01) ==
LOC: RT 13:08
PROVIDERS: PCP Internal Medicine; Visit Provider Podiatrist
DX: R09.89 Other specified symptoms and signs involving the circulatory and respiratory systems (principal)
CPT/HCPCS: 93923

== ENCOUNTER → 2025-01-25 09:02 | Outpatient (CLI) | payer MEDICAID, SELFPAY | LOC: SL 09:03 | PROVIDERS: PCP Internal Medicine; Visit Provider Internal Medicine | DX: G47.33 Obstructive sleep apnea (adult) (pediatric) (principal) | CPT/HCPCS: 95806 ==

== ENCOUNTER 2025-03-14 13:43 | Outpatient (CLI) | payer MEDICAID, SELFPAY ==
--- NOTE | 2025-03-14 14:00 | CT_ITS ---
FINAL REPORT TECHNIQUE: Axial images through the facial bones and sinuses was performed by computed tomography. Sagittal and coronal reformatted images were obtained and reviewed. This study was performed with techniques to keep radiation doses as low as reasonably achievable, (ALARA). Individualized dose reduction techniques using automated exposure control or adjustment of mA and/or kV according to the patient's size were employed. CLINICAL HISTORY: Jaw pain, left TMJ dysfunction FINDINGS: There is abnormal flattening and sclerosis of the left mandibular condyle well-seen on images 37 through 39 of series 601. The right mandibular condyle is intact. There is narrowing of the left temporal mandibular joint space well-seen on image 50 of series 602. 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 Reviewed, Interpreted and Dictated by Arsenio Sharp MD Transcribed by Chloe Mata Authenticated and [facility]
== END 2025-03-14 23:59 | disposition home or self-care (01) ==
LOC: RAD 13:44
PROVIDERS: PCP Nurse Practitioner Family; Visit Provider Nurse Practitioner Family
DX: M19.09 Primary osteoarthritis, other specified site (principal)
CPT/HCPCS: 70486

== ENCOUNTER 2025-03-20 16:23 | Outpatient (CLI) | payer MEDICAID, SELFPAY ==
[2025-03-20 17:27] LABS: HIV Combo NEGATIVE (Negative)
[2025-03-20 17:35] LABS: Hepatitis C Ab Qual. W/ RFX NEGATIVE (Negative)
== END 2025-03-20 23:59 | disposition home or self-care (01) ==
LOC: LAB.DROPOF 16:23
PROVIDERS: PCP Nurse Practitioner Family; Visit Provider Nurse Practitioner Family
DX: Z11.4 Encounter for screening for human immunodeficiency virus [HIV] (principal); Z11.59 Encounter for screening for other viral diseases
CPT/HCPCS: 86803; 87389

== ENCOUNTER 2025-04-04 14:05 | Outpatient (CLI) | payer MEDICAID, SELFPAY ==
[2025-04-04 17:19] LABS: Basophils # 0.1 K/mm3 (0-0.2); Basophils % 0.7 % (0.1-2.0); Eosinophils # 0.2 Kmm3 (0.0-0.4); Eosinophils % 1.9 % (0.1-12.0); Hematocrit 41.2 % (37.0-47.0); Hemoglobin 13.3 g/dL (12.2-16.2); Immature Granulocytes # 0.02 10^3uL; Immature Granulocytes % 0.2 %; Lymphocytes # 2.9 K/mm3 (0.7-4.5); Lymphocytes % 29.6 % (10-50); Mean Corpuscular HGB Conc 32.3 g/dL (31.8-35.4); Mean Corpuscular Hemoglobin 30.2 pg (27.0-31.2); Mean Corpuscular Volume 93.4 fl (81-99); Mean Platelet Volume 10.9 fl (7.4-10.4); Monocytes # 0.7 K/mm3 (0.1-1.0); Neutrophils # 5.9 K/mm3 (1.8-7.8); Neutrophils % 60.6 % (37.0-80.0); Nucleated Red Blood Cells # 0 10^3/uL; Nucleated Red Blood Cells % 0 %; Platelet Count 282 K/mm3 (142-424); Red Blood Count 4.41 M/mm3 (4.20-5.40); Red Cell Distribution Width 14.1 % (11.5-17.5); Red Cell Distribution Width-SD 48.5 fL; White Blood Count 9.6 K/mm3 (4.8-10.8)
[2025-04-04 17:30] LABS: Albumin/Globulin Ratio 1.5 (1.1-1.8); Alkaline Phosphatase 84 U/L (38-126); Anion Gap 8.8 mEq/L (5-15); Aspartate Amino Transferase 22 U/L (14-36); Bilirubin,Total 0.5 mg/dl (0.2-1.3); Blood Urea Nitrogen 13 mg/dl (7-17); Calcium 8.9 mg/dl (8.4-10.2); Carbon Dioxide 29 mmol/L (22.0-30.0); Chloride 107 mmol/L (98-107); Estimated Glomerular Filt Rate 64 ml/min (>60); GFR (African American) 77 ML/MIN (>60); Globulin 2.6 g/dL (1.3-3.2); Glucose 70 mg/dl (74-100); Potassium 4.8 mmoL/L (3.5-5.1); Sodium 140 mmol/L (136-145); Total Protein,Serum 6.6 g/dl (6.3-8.2)
[2025-04-04 17:31] LABS: Alanine Aminotransferase 12 U/L (12-78)
== END 2025-04-04 23:59 | disposition home or self-care (01) ==
LOC: LAB.DROPOF 04-05 10:03
PROVIDERS: PCP Internal Medicine; Visit Provider Internal Medicine
DX: Z00.00 Encounter for general adult medical examination without abnormal findings (principal); Z13.29 Encounter for screening for other suspected endocrine disorder
CPT/HCPCS: 80053; 84439; 84443; 85025